=== PATIENT | male | born 1955 | race Caucasian/White ===

== ENCOUNTER 2017-01-09 10:20 | Emergency (ER) | payer BC ==
[~2017-01-09] VITALS: Ht 175.3 cm; Wt 86.7 kg
[2017-01-09 10:53] LABS: HEMATOCRIT 45.6 % (38.0-50.0); MCV 88.4 FL (86-99); MEAN PLAT.VOLUME 10.9 uM^3 (9.0-12.4); PLATELET COUNT 202 K/uL (156-360); RBC DIS.WIDTH-CV 12.2 % (11.8-14.6); RBC DIS.WIDTH-SD 39.6 % (39-53); RED BLOOD COUNT 5.16 M/uL (4.00-5.50); WHITE BLOOD COUNT 6.3 K/uL (4.1-10.2)
[2017-01-09 10:59] LABS: ADD MIUA? NO; BILIRUBIN NEGATIVE; BLOOD NEGATIVE; COLOR COLORLESS ((YELLOW)); GLUCOSE (STRIP) NEGATIVE; KETONES NEGATIVE; LEUKOCYTES NEGATIVE; NITRITE NEGATIVE; PROTEIN (STRIP) NEGATIVE; SPECIFIC GRAVITY 1.003 (1.000-1.030); UCUL ADDED? NO; UROBILINOGEN 0.2 MG/DL (0.2-1.0)
[2017-01-09 11:03] LABS: CHLORIDE 104 mEq/L (99-109); SODIUM 138 mEq/L (136-147)
[2017-01-09 11:06] LABS: GLUCOSE 105 mg/dL (70-99)
[2017-01-09 11:07] LABS: ANION GAP 12 MEQ/L (2-14)
[2017-01-09 11:08] LABS: TOTAL BILIRUBIN 0.5 mg/dL (0.0-1.0)
[2017-01-09 11:09] LABS: ALKALINE PHOSPHATASE 59 IU/L (3-129)
[2017-01-09 11:10] LABS: UREA NITROGEN (BUN) 12 mg/dL (9-23)
[2017-01-09 11:12] LABS: GFR ESTIMATE (CALCULATED) > 59 mL/min/
[2017-01-09 11:13] LABS: LIPASE 82 U/L (1.0-51.0)
[2017-01-09] MEDS ORDERED: ESOMEPRAZOLE MA20 MG PO (11:24)
[2017-01-09] MEDS ORDERED: CARAFATE100 MG/ML PO (11:25)
[2017-01-09 13:46] VITALS: BP 149/89
== END 2017-01-09 13:50 | disposition home or self-care (01) ==
LOC: EME 10:20
DX: K21.9 Gastro-esophageal reflux disease without esophagitis (principal); R74.8 Abnormal levels of other serum enzymes; Z88.1 Allergy status to other antibiotic agents
CPT/HCPCS: 80053; 81003; 83690; 85027; 99281; 99284

== ENCOUNTER 2017-02-19 12:37 | Emergency (ER) | payer BC ==
[~2017-02-19] VITALS: Ht 175.3 cm; Wt 86.1 kg
[~2017-02-19 12:37] MED LIST: CARAFATE100 MG/ML PO; ESOMEPRAZOLE MA20 MG PO
[2017-02-19 14:39] LABS: HEMATOCRIT 45.5 % (38.0-50.0); MCH 29.5 PG (29.0-34.0); MCHC 33.4 G/DL (30.0-36.0); MCV 88.3 FL (86-99); MEAN PLAT.VOLUME 11.5 uM^3 (9.0-12.4); PLATELET COUNT 200 K/uL (156-360); RBC DIS.WIDTH-CV 12.1 % (11.8-14.6); RBC DIS.WIDTH-SD 39.6 % (39-53); RED BLOOD COUNT 5.15 M/uL (4.00-5.50); WHITE BLOOD COUNT 7.1 K/uL (4.1-10.2)
[2017-02-19 14:52] LABS: CHLORIDE 107 mEq/L (99-109); POTASSIUM 4.4 mEq/L (3.7-5.4); SODIUM 138 mEq/L (136-147)
[2017-02-19 14:54] LABS: ADD MIUA? NO; BILIRUBIN NEGATIVE; BLOOD NEGATIVE; COLOR STRAW ((YELLOW)); GLUCOSE (STRIP) NEGATIVE; KETONES NEGATIVE; LEUKOCYTES NEGATIVE; NITRITE NEGATIVE; PROTEIN (STRIP) NEGATIVE; SPECIFIC GRAVITY 1.018 (1.000-1.030); UROBILINOGEN 0.2 MG/DL (0.2-1.0)
[2017-02-19 14:55] LABS: ANION GAP 9 MEQ/L (2-14); GLUCOSE 110 mg/dL (70-99)
[2017-02-19 14:57] LABS: GFR ESTIMATE (CALCULATED) > 59 mL/min/
[2017-02-19 14:58] LABS: UREA NITROGEN (BUN) 17 mg/dL (9-23)
[2017-02-19 15:11] LABS: CREATINE KINASE 130 IU/L (1-294)
[2017-02-19] MEDS ORDERED: FLONASE16 G1 BOTH NARES (16:48)
[2017-02-19] MEDS ORDERED: NAPROSYN500 MG PO (16:48)
[2017-02-19] MEDS ORDERED: MUCINEX D ER T1 EACH PO (16:48)
[2017-02-19] MEDS ORDERED: VALIUM2 MG PO (16:48)
[2017-02-19 17:19] VITALS: BP 134/88
== END 2017-02-19 17:22 | disposition home or self-care (01) ==
LOC: EME 12:37
PROVIDERS: Physician Assistant
DX: H65.03 Acute serous otitis media, bilateral (principal); I45.10 Unspecified right bundle-branch block; Z88.0 Allergy status to penicillin
CPT/HCPCS: 80048; 81003; 82550; 85027; 99281; 99285

== ENCOUNTER 2017-07-30 10:33 | Emergency (ER) | payer BC ==
[~2017-07-30] VITALS: Ht 175.3 cm; Wt 84.5 kg
[~2017-07-30 10:33] MED LIST changes: +FLONASE16 G1 BOTH NARES; +MUCINEX D ER T1 EACH PO; +NAPROSYN500 MG PO; +VALIUM2 MG PO
[2017-07-30 11:10] LABS: APPEARANCE CLEAR ((CLEAR)); BILIRUBIN NEGATIVE; BLOOD NEGATIVE; COLOR STRAW ((YELLOW)); GLUCOSE (STRIP) NEGATIVE; KETONES NEGATIVE; LEUKOCYTES NEGATIVE; NITRITE NEGATIVE; PROTEIN (STRIP) NEGATIVE; SPECIFIC GRAVITY 1.008 (1.000-1.030); UCUL ADDED? NO; UROBILINOGEN 0.2 MG/DL (0.2-1.0)
[2017-07-30 11:15] LABS: HEMATOCRIT 49.1 % (38.0-50.0); HEMOGLOBIN 16.7 G/DL (12.5-16.6); MCH 30.3 PG (29.0-34.0); MCV 89.1 FL (86-99); PLATELET COUNT 227 K/uL (156-360); RBC DIS.WIDTH-CV 12.2 % (11.8-14.6); RBC DIS.WIDTH-SD 39.9 % (39-53); RED BLOOD COUNT 5.51 M/uL (4.00-5.50); WHITE BLOOD COUNT 7.5 K/uL (4.1-10.2)
[2017-07-30 11:27] LABS: ALBUMIN 4.8 g/dL (3.2-4.8); CHLORIDE 102 mEq/L (99-109); POTASSIUM 4.4 mEq/L (3.7-5.4); SODIUM 140 mEq/L (136-147)
[2017-07-30 11:29] LABS: GLUCOSE 115 mg/dL (70-99); TOTAL PROTEIN 7.9 g/dL (6.4-8.3)
[2017-07-30 11:31] LABS: TOTAL BILIRUBIN 0.6 mg/dL (0.0-1.0)
[2017-07-30 11:33] LABS: ALKALINE PHOSPHATASE 62 IU/L (3-129); CREATININE 1.5 mg/dL (0.6-1.3); GFR ESTIMATE (CALCULATED) 51 mL/min/ (58.99-99999)
[2017-07-30 11:34] LABS: UREA NITROGEN (BUN) 17 mg/dL (9-23)
[2017-07-30 11:35] LABS: AST (GOT) 24 IU/L (2-34)
[2017-07-30 11:36] LABS: ALT (GPT) 43 IU/L (3-49); LIPASE 60 U/L (1.0-51.0)
[2017-07-30] MEDS ORDERED: NEXIUM20 MG PO (13:39)
[2017-07-30 13:45] VITALS: BP 130/88
== END 2017-07-30 13:48 | disposition home or self-care (01) ==
LOC: EME 10:33
DX: R14.0 Abdominal distension (gaseous) (principal); K21.9 Gastro-esophageal reflux disease without esophagitis; I45.10 Unspecified right bundle-branch block; Z88.0 Allergy status to penicillin; Z88.1 Allergy status to other antibiotic agents
CPT/HCPCS: 74176; 80053; 81003; 83690; 85027; 99281; 99284; J7030